=== PATIENT | female | born 1995 | race Two or more races ===

== ENCOUNTER 2021-09-05 23:08 | Emergency (ER) | payer OTHER ==
[~2021-09-05] VITALS: Ht 152.4 cm; Wt 58.1 kg
[2021-09-05] MEDS ORDERED: PRENATAL + DHA1 EAC1 (23:27)
[2021-09-06] MEDS ORDERED: INTESTINEX680 M2 PO (03:41)
[2021-09-06] MEDS ORDERED: AMOX1TAB5 PO (03:41)
[2021-09-06] MEDS ORDERED: MUCINEX DM ER1 EACH PO (03:46)
== END 2021-09-06 04:42 | disposition home or self-care (01) ==
LOC: ER 23:08
DX: J06.9 Acute upper respiratory infection, unspecified (principal); N39.0 Urinary tract infection, site not specified; Z3A.12 12 weeks gestation of pregnancy; Z20.822 Contact with and (suspected) exposure to COVID-19

== ENCOUNTER → 2022-02-06 | Emergency (ER) | payer OTHER ==
[~2022-02-06] VITALS: Ht 152.4 cm; Wt 78.9 kg
[~2022-02-06] MED LIST: AMOX1TAB5 PO; INTESTINEX680 M2 PO; MUCINEX DM ER1 EACH PO; PRENATAL + DHA1 EAC1
== END | disposition home or self-care (01) ==
LOC: ER 23:46
DX: Z53.21 Procedure and treatment not carried out due to patient leaving prior to being seen by health care provider (principal)

== ENCOUNTER 2022-03-10 13:15 | Inpatient (IN) | payer OTHER ==
[~2022-03-10] VITALS: Ht 157.5 cm; Wt 87.1 kg
== END 2022-03-13 16:38 | disposition home or self-care (01) | DRG 833 ==
LOC: SEC-K 03-12 11:05 → OB/GYN 03-12 11:05 → LDR 03-18 13:15 → OB/GYN 03-18 13:15
PROVIDERS: ADMIT Obstetrics & Gynecology; ATTEND Obstetrics & Gynecology
PROC: 4A1HXCZ Monitoring of Products of Conception, Cardiac Rate, External Approach (ICD-10-PCS; principal; 2022-03-12)
DX: O99.013 Anemia complicating pregnancy, third trimester (principal); D64.89 Other specified anemias; Z3A.39 39 weeks gestation of pregnancy; Z20.822 Contact with and (suspected) exposure to COVID-19

== ENCOUNTER 2022-03-16 06:36 | Inpatient (IN) | payer OTHER ==
[~2022-03-16] VITALS: Ht 152.4 cm; Wt 3.2 kg
== END 2022-03-19 14:43 | disposition home or self-care (01) | DRG 788 ==
LOC: LDR 06:36 → O/R 22:28 → OB/GYN 23:41
PROVIDERS: ADMIT Obstetrics & Gynecology; ATTEND Obstetrics & Gynecology
PROC: 4A1HXFZ Monitoring of Products of Conception, Cardiac Rhythm, External Approach (ICD-10-PCS; 2022-03-16)
PROC: 10D00Z1 Extraction of Products of Conception, Low, Open Approach (ICD-10-PCS; principal; 2022-03-16 18:45)
DX: O62.1 Secondary uterine inertia (principal); O65.9 Obstructed labor due to maternal pelvic abnormality, unspecified; Z3A.39 39 weeks gestation of pregnancy; Z37.0 Single live birth